=== PATIENT | male | born 2000 | race Caucasian/White ===

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

== ENCOUNTER → 2020-01-09 | Outpatient (CLI) | payer OTHER ==
[2017-06-09 19:32] VITALS: BP 114/70
[~2020-01-09] MED LIST: AMOX1TAB61 PO; METH4TAB2 PO
== END | disposition home or self-care (01) ==
LOC: LAB 16:08
PROVIDERS: ATTEND Internal Medicine Pulmonary Disease
DX: Z20.828 Contact with and (suspected) exposure to other viral communicable diseases (principal)
CPT/HCPCS: U0003-CS